=== PATIENT | female | born 1975 | race African-American/Black ===

== ENCOUNTER 2016-09-01 09:39 | Emergency (ER) | payer MEDICAID, OTHER, SELFPAY ==
[2016-09-01] MEDS ORDERED: Ondansetron HCl/PF 4 MG/2 ML Vial ONE (10:09)
[2016-09-01] MEDS ORDERED: Sodium Chloride 0.9% 1,000 ML ONE (10:09)
[2016-09-01 10:22] LABS: Blood, Urine Trace (Negative); Glucose, Urine (Dipstick) 500 mg/dL (Negative); Ketone, Urine 80 mg/dL (Negative); Nitrite Negative (Negative); Protein, Urine (Dipstick) 100 mg/dL (Neg-Trace)
[2016-09-01 10:25] LABS: Lactic Acid - Sepsis 1.2 mmol/L (0.5-2.2)
[2016-09-01 10:26] LABS: Bilirubin Negative (Negative)
[2016-09-01 10:28] LABS: ALT (SGPT) 9 U/L (0-55); AST (SGOT) 9 U/L (5-34); Alkaline Phosphatase 128 U/L (40-150); Anion Gap 17 mmol/L (10-20); BUN (Urea Nitrogen) 17 mg/dL (7.0-18.7); Bilirubin, Total 0.7 mg/dL (0.2-1.2); Calc. Creatinine Clearance 0 mL/min (70-130); Calcium 10.2 mg/dL (7.8-10.44); Carbon Dioxide 23 mmol/L (22-29); Chloride 100 mmol/L (98-107); Estimated GFR-MDRD 74; Globulin 4.4 g/dL (2.4-3.5); Lipase 24 U/L (8-78); Protein, Total 8.6 g/dL (6.0-8.3)
[2016-09-01] MEDS ORDERED: Insulin Regular 300 UNITS/3 ML VIAL ONE (10:33)
[2016-09-01 10:38] LABS: #Basophils 0.2 thou/uL (0.0-0.2); #Eosinphils 0.1 thou/uL (0.0-0.7); #Lymphocytes 3.7 thou/uL (1.20-3.40); #Monocytes 0.4 thou/uL (0.11-0.59); #Neutrophils 5.8 thou/uL (1.40-6.50); %Basophils 1.6 % (0.0-1.0); %Eosinophils 0.8 % (0.0-10.0); %Lymphocytes 36.1 % (21.0-51.0); %Monocytes 4.3 % (0.0-10.0); Hematocrit 50.7 % (36.0-47.0); Mean Platelet Volume 6.4 fL (7.4-10.4); Red Blood Cell (RBC) Count 5.76 mill/uL (4.20-5.40); White Blood Cell (WBC) Count 10.1 thou/uL (4.8-10.8)
[2016-09-01] MEDS ORDERED: Fentanyl 100 MCG/2 ML VIAL ONE (10:46)
[2016-09-01 10:49] LABS: Bacteria/HPF Rare-Few HPF (None Seen); RBC/HPF 0-3 HPF (0-3); WBC/HPF 0-3 HPF (0-3)
--- NOTE | 2016-09-01 11:37 | CT ---
CT OF THE ABDOMEN AND PELVIS WITH IV CONTRAST INDICATIONS: Abdominal pain with vomiting. No history of bowel movement in one week. The patient has reportedly not been passing flatus either over the past few days. COMPARISON: CT of the abdomen and pelvis dated 11/22/2011. FINDINGS: The lung bases are clear. No focal hepatic lesion is evident. There is mild nonspecific stranding within the retroperitoneal fat, adjacent to the pancreatic tail, which was not definitely present on the prior exam. The adrenal glands appear within normal limits . The kidneys are normal appearing. There are small calcified granuloma within the spleen. The visualized bladder is unremarkable appearing. The small and large bowel are of normal caliber. There is a mild amount of retained stool within the colon. The appendix is not definitely visualize d; however, there are no secondary signs for appendicitis. There are follicles within the right ovary. There is a small, hyperdense density seen within the le ft adnexa, which may reflect a small hemorrhagic cyst. A normal appearing uterus is not definitely seen. There is gas within the suspected vagina. The bl adder is partially decompressed. The rectum is unremarkable appearing. No pathologically enlarged lymph nodes are grossly evident. There is scattered degenerative and osteoarthritic change. IMPRESSION: 1. Some mild inflammatory infiltration of the retroperitoneal fat, adjacent to the pancreatic tail, which reflect changes of pancreatitis. Recommend correlation with clinical exam and laboratory abbi luation. 2. No additional acute abnormality evident. 3. Other findings as above. POS: REN
--- NOTE | 2016-09-01 12:13 | ERRECORD ---
[facility] EMERGENCY RECORD HPI NAUSEA/VOMITING/DIARRHEA (10:03 BPIC) CHIEF COMPLAINT: Patient presents for evaluation of nausea, Patient presents for evaluation of vomiting. HISTORIAN: History provided by patient, 1 week of n, v. no bowel movement since then. pt states that she is not having flatus either for the past few days. she is unable to keep even water down at this point because of vomiting. when she tries to take her diabetic medications, she vomits as well. Her blood glucose at home has been relatively controlled, she believes because she is not eating much. periumbilical pain and tenderness. she does have a history of pancreatitis but states that this feels different than pancreatitis. ROS (10:06 BPIC) CONSTITUTIONAL: Negative constitutional review of systems, Historian denies chills, denies fever. EYES: Negative eye review of systems. ENT: Negative ears, nose, throat review of systems. CARDIOVASCULAR: Negative cardiovascular review of systems, Historian denies chest pain, denies palpitations. RESPIRATORY: Negative respiratory review of systems, Historian denies cough, denies shortness of breath. GI: see hpi. MUSCULOSKELETAL: Negative musculoskeletal review of systems. SKIN: Negative skin review of systems. NEUROLOGIC: Negative neurologic review of systems. ENDOCRINE: Negative endocrine review of systems. HEMO/LYMPHATIC: Normal hematologic/lymphatic system review. PSYCHIATRIC: Negative psychiatric review of systems. NOTES: All other ROS is negative except as listed in HPI. PAST MEDICAL HISTORY MEDICAL HISTORY: Flu vaccine not up to date, Tetanus not up to date, Pneumococcal vaccine up to date, Date of immunization: 2016, Past medical history includes gastrointestinal disease, pancreatitis, Past medical history includes pulmonary disease, asthma, Past medical history includes history of diabetes, includes history of hyperlipidemia, high cholesterol, history of hypertension. neuropathy. (09:48 MSPE) FEMALE SURGICAL HISTORY: hernia repair, lump removal from under R and L arm. (09:48 MSPE) PSYCHIATRIC HISTORY: No previous psychiatric history. (09:48 MSPE) SOCIAL HISTORY: Patient denies alcohol use, Patient denies drug use, Patient currently uses tobacco, smokes cigarettes, Patient smokes 1 pack per day. (09:48 MSPE) NOTES: I have reviewed and agree with the PMH/PSxH/FamHx/SocHx obtained by the nurse. (10:06 BPIC) &a-1R&a+25V*p+0X*[id number]*c202B*c15G*c2P*p-0X&a-25V&a+1R Name: Esperanza Lee : 1975 F41 MedRec: [id number] AcctNum: [id number] Prepared: TueSep 01, 2016 15:12 by Interface Page 1 of 4 pMD [facility] EMERGENCY RECORD KNOWN ALLERGIES LATEX (Unconfirmed) Latex, Natural Rubber (Unconfirmed) No Known Drug Allergies CURRENT MEDICATIONS (09:45 MSPE) cloNIDine HCl: TABLET : Strength - 0.1 mg : ORAL Patient Dose: 0.1 mg Oral 2 times a day. glipiZIDE: TABLET : Strength - 10 mg : ORAL Patient Dose: 10 mg Oral 3 times a day (with meals). Lantus: CARTRIDGE (ML) : Strength - 100 unit/mL : SUBCUTANEOUS Patient Dose: 30 units Subcutaneous 2 times a day. Janumet: TABLET : Strength - 50 mg-500 mg : ORAL Patient Dose: 500 mg Oral 3 times a day (with meals). Neurontin: CAPSULE : Strength - 300 mg : ORAL Patient Dose: 300 mg Oral 3 times a day. predniSONE: TABLET : Strength - 20 mg : ORAL Patient Dose: 40 mg Oral once a day. ProAir HFA: HFA AEROSOL WITH ADAPTER (GRAM) : Strength - 90 mcg : INHALATION Patient Dose: 1-2 puff(s) INHALATION every 4 hours prn. Zithromax Z-Pa: CAPSULE : Strength - 250 mg : ORAL Patient Dose: 250 mg Oral once a day. VITAL SIGNS VITAL SIGNS: BP: 144/89, Pulse: 118, Resp: 15, Pain: 7, O2 sat: 99 on Room Air, Time: 09/01/2016 09:45. (09:45 MSPE) Temp: 97.8, Time: 09/01/2016 09:48. (09:48 MSPE) BP: 138/106, Pulse: 105, Resp: 13, O2 sat: 98 on Room Air, Time: 09/01/2016 10:16. (10:16 MSPE) BP: 147/100, Pulse: 96, Resp: 18, O2 sat: 99 on Room Air, Time: 09/01/2016 10:30. (10:30 MSPE) BP: 138/96, Pulse: 98, Resp: 15, Pain: 8, O2 sat: 96 on Room Air, Time: 09/01/2016 11:11. (11:11 MSPE) BP: 130/89, Pulse: 97, Resp: 13, O2 sat: 98 on RA, Time: 09/01/2016 11:34. (11:34 MSPE) PHYSICAL EXAM (10:06 BPIC) CONSTITUTIONAL: Vital signs reviewed, Patient appears non toxic, Patient alert and oriented to person, place and time, Pt is in no apparent distress. HEAD: Head exam included findings of head atraumatic, &a-1R&a+25V*p+0X*[id number]*c202B*c15G*c2P*p-0X&a-25V&a+1R Name: Esperanza Lee : 1975 F41 MedRec: [id number] AcctNum: [id number] Prepared: TueSep 01, 2016 15:12 by Interface Page 2 of 4 D [facility] EMERGENCY RECORD normocephalic. EYES: Eye exam included findings of eyelids normal to inspection, Pupils equally round and reactive to light, Extraocular muscles intact. ENT: ENT exam normal, Nose exam normal, no nasal deformity, no bleeding from nares, Pharynx exam normal, Mouth exam included findings of, mucous membranes dry. NECK: Neck exam included findings of normal range of motion, Trachea midline. RESPIRATORY CHEST: Respiratory and chest exam normal, Breath sounds clear, No wheezing, No rales, Chest exam included findings of chest movement symmetrical, Chest expansion equal. CARDIOVASCULAR: Cardiovascular assessment normal, Cardiovascular exam included findings of, rate tachycardic, rhythm regular, Heart sounds normal. ABDOMEN FEMALE: Abdominal exam included findings of abdomen tender, periumbilical, moderate intensity, Bowel sounds normal, no mass, no pulsatile masses, no peritoneal signs. BACK: Back exam included findings of normal inspection, range of motion normal, no costovertebral angle tenderness. UPPER EXTREMITY: Upper extremity exam included findings of inspection normal, Range of motion normal. LOWER EXTREMITY: Lower extremity exam included findings of inspection normal, Range of motion normal. NEURO: Neuro exam findings include patient oriented to person, place and time, Speech normal, no focal motor deficits, no focal sensory deficits. SKIN: Skin exam included findings of skin warm, dry, and normal in color. LYMPHATIC: Lymphatic exam normal. PSYCHIATRIC: Psychiatric exam included findings of patient oriented to person place and time, Normal affect. MEDICATION ADMINISTRATION SUMMARY Drug Name: fentaNYL (PF) injection, Dose Ordered: 50 mcg, Route: IV Push, Status: Given, Time: 10:49 09/01/2016, Drug Name: NovoLIN R, Dose Ordered: 6 units, Route: IV Push, Status: Given, Time: 10:37 09/01/2016, Drug Name: ondansetron HCl intravenous, Dose Ordered: 8 mg, Route: IV Push, Status: Given, Time: 10:18 09/01/2016, Drug Name: sodium chloride 0.9 % intravenous, Dose Ordered: 1000 mL, Route: IV Fluid Infusion, Status: Given, Time: 10:15 09/01/2016, Detailed record available in Medication Service section. DOCTOR NOTES (11:38 BPIC) TEXT: Constipation and vomiting. no obstruction seen on ct and stool throughout colon. mild hyperglycemia and serum ketone without anion gap, hyperglycemia improved with ivf and insulin. I &a-1R&a+25V*p+0X*[id number]*c202B*c15G*c2P*p-0X&a-25V&a+1R Name: Esperanza Lee : 1975 F41 MedRec: [id number] AcctNum: [id number] Prepared: TueSep 01, 2016 15:12 by Interface Page 3 of 4 pMD [facility] EMERGENCY RECORD have discussed this with the patient along with the option of admission or trial of outpatient laxative and nausea medication. Pt feeling better and she would like to take a laxative at home I discussed the diagnosis with the patient prior to discharge. All questions were answered. There is no indication for admission currently and the patient will follow up with his primary care physician. Any pertinent labs or imaging was reviewed and dicussed with the patient. If any new or emergent symptoms occur, the patient will return to the emergency department. PROBLEM LIST No recorded problems DIAGNOSIS DIFFERENTIAL: Based on history, exam and ancillary studies if indicated: Impression: appendicitis, Impression: bowel obstruction, Impression: constipation, Impression: hernia, Impression: ischemic bowel, Impression: pancreatitis, Impression: gastritis, Impression: GERD, Impression: cholelithiasis. (10:07 BPIC) FINAL: PRIMARY: constipation, ADDITIONAL: hyperglycemia, vomiting. (11:40 BPIC) PRESCRIPTION (11:41 BPIC) traMADol: TABLET : 50 mg : ORAL : Quantity: 50 Unit: mg Route: ORAL Schedule: every 6 hours PRN Dispense: 20 Unit: tab(s) May substitute. Refills: No Refills . NOTES: No Refills. Zofran ODT: TABLET,DISINTEGRATING : 8 mg : ORAL : Quantity: 8 Unit: mg Route: ORAL Schedule: every 6 hours PRN Dispense: 20 Unit: tab(s) May substitute. Refills: No Refills . NOTES: ^s=No Refills No Refills. DISPOSITION PATIENT: Disposition Type: Discharge, Disposition: *Discharge Home, Condition: Good. (11:40 BPIC) Patient left the department. (12:06 MSPE) Mcrae: BPIC=MD Siva, Duong MSPE=ASHELY Bell, Queenie &a-1R&a+25V*p+0X*g0569S*c202B*c15G*c2P*p-0X&a-25V&a+1R Name: Esperanza Lee : 1975 F41 MedRec: [id number] AcctNum: [id number] Prepared: TueSep 01, 2016 15:12 by Interface Page 4 of 4 pMD MTDD
--- NOTE | 2016-09-01 12:18 | PICIS ---
[facility] EMERGENCY RECORD TRIAGE (09:44 MSPE) TRIAGE NOTES: stomach pain with vomiting since Tuesday. (09:44 MSPE) PATIENT: NAME: Esperanza Lee, AGE: 41, GENDER: female, : Sandra 1975, TIME OF GREET: TueSep 01, 2016 09:40, PREFERRED LANGUAGE: Mauritanian, ETHNICITY: Not or , ECODE BILLING MAP: [facility], SSN: [id number], Zip Code: [address], KG WEIGHT: 64.86, PHONE: , , , PERSON ID: [id number], PCP: Chanda Leon /Won. (09:44 MSPE) COMPLAINT: ABDOMINAL PAIN,VOMITING,WEAKNESS. (09:44 MSPE) ADMISSION: URGENCY: 3 Urgent, ADMISSION SOURCE: Home, TRANSPORT: CAR, BED: ER -03. (09:44 MSPE) LMP: Last menstrual period: 08/26/2016. (09:48 MSPE) PROVIDERS: TRIAGE NURSE: Queenie Bell RN. (09:44 MSPE) VITAL SIGNS: BP 144/89, Pulse 118, Resp 15, Pain 7, O2 Sat 99, on Room Air, Time 09/01/2016 09:45. (09:45 MSPE) PREVIOUS VISIT ALLERGIES: LATEX. (09:44 MSPE) LATEX. (09:48 MSPE) KNOWN ALLERGIES LATEX (Unconfirmed) Latex, Natural Rubber (Unconfirmed) No Known Drug Allergies CURRENT MEDICATIONS (09:45 MSPE) cloNIDine HCl: TABLET : Strength - 0.1 mg : ORAL Patient Dose: 0.1 mg Oral 2 times a day. glipiZIDE: TABLET : Strength - 10 mg : ORAL Patient Dose: 10 mg Oral 3 times a day (with meals). Lantus: CARTRIDGE (ML) : Strength - 100 unit/mL : SUBCUTANEOUS Patient Dose: 30 units Subcutaneous 2 times a day. Janumet: TABLET : Strength - 50 mg-500 mg : ORAL Patient Dose: 500 mg Oral 3 times a day (with meals). Neurontin: CAPSULE : Strength - 300 mg : ORAL Patient Dose: 300 mg Oral 3 times a day. predniSONE: TABLET : Strength - 20 mg : ORAL Patient Dose: 40 mg Oral once a day. ProAir HFA: HFA AEROSOL WITH ADAPTER (GRAM) : Strength - 90 mcg : INHALATION Patient Dose: 1-2 puff(s) INHALATION every 4 hours prn. Zithromax Z-Pa: CAPSULE : Strength - 250 mg : ORAL Patient Dose: 250 mg Oral once a day. &a-1R&a+25V*p+0X*i6248G*c202B*c15G*c2P*p-0X&a-25V&a+1R Name: Esperanza Lee : 1975 F41 MedRec: [id number] AcctNum: [id number] Prepared: TueSep 01, 2016 15:19 by Interface Page 1 of 12 pMD [facility] EMERGENCY RECORD VITAL SIGNS VITAL SIGNS: BP: 144/89, Pulse: 118, Resp: 15, Pain: 7, O2 sat: 99 on Room Air, Time: 09/01/2016 09:45. (09:45 MSPE) Temp: 97.8, Time: 09/01/2016 09:48. (09:48 MSPE) BP: 138/106, Pulse: 105, Resp: 13, O2 sat: 98 on Room Air, Time: 09/01/2016 10:16. (10:16 MSPE) BP: 147/100, Pulse: 96, Resp: 18, O2 sat: 99 on Room Air, Time: 09/01/2016 10:30. (10:30 MSPE) BP: 138/96, Pulse: 98, Resp: 15, Pain: 8, O2 sat: 96 on Room Air, Time: 09/01/2016 11:11. (11:11 MSPE) BP: 130/89, Pulse: 97, Resp: 13, O2 sat: 98 on RA, Time: 09/01/2016 11:34. (11:34 MSPE) NURSING ASSESSMENT: ABDOMEN (09:48 MSPE) CONSTITUTIONAL: Patient arrives ambulatory, Gait steady, History obtained from patient, Patient appears, generally ill, Patient cooperative, Patient alert, Oriented to person, place and time, Skin warm, Skin dry. PAIN: cramping pain, to the epigastric region, Onset of pain 08/25/2016, constant, sts pain worse after vomiting. ABDOMEN: Associated with nausea, Associated with vomiting, no associated diarrhea, Associated with appetite change, sts no PO tolerance, Notes: sts belching a lot; no BM for several days Subjective fever. GENITOURINARY FEMALE: no associated urinary complaints. SAFETY: Side rails up, Cart/Stretcher in lowest position, Family at bedside, Call light within reach, Hospital ID band on. VITAL SIGNS: Temp: 97.8. NURSING PROCEDURE: BEDSIDE TESTING GLUCOSE: Glucose testing indicated for diabetic patient, Capillary blood sample, Result (mg/dl) 263. (10:06 MSPE) Glucose testing indicated for diabetic patient, Glucose testing indicated for hyperglycemia, Capillary blood sample, Result (mg/dl) 187. (11:34 MSPE) FOLLOW-UP: After procedure, results given to Dr. Paniagua. (10:06 MSPE) After procedure, results given to Dr. Paniagua. (11:34 MSPE) VITAL SIGNS: BP: 130, / 89, Pulse: 97, Resp: 13, O2 sat: 98, on: RA. (11:34 MSPE) NURSING PROCEDURE: DISCHARGE NOTE (11:52 MSPE) DISCHARGE: Patient discharged to home, in a wheelchair, family driving, accompanied by //partner, Summary of Care printed/ provided, Discharge instructions given to patient, Simple or moderate discharge teaching performed, Prescriptions given and instructions on side effects given, Above person(s) verbalized &a-1R&a+25V*p+0X*s7631E*c202B*c15G*c2P*p-0X&a-25V&a+1R Name: Esperanza Lee : 1975 F41 MedRec: [id number] AcctNum: [id number] Prepared: TueSep 01, 2016 15:19 by Interface Page 2 of 12 D [facility] EMERGENCY RECORD understanding of discharge instructions and follow-up care, Patient treated and evaluated by physician. BELONGINGS: Belongings remain with patient. NOTES: Notes: Tolerating sips of water at time of DC. NURSING PROCEDURE: IV PATIENT IDENITIFIER: Patient actively involved in identification process, Patient's identity verified by patient stating name, Patient's identity verified by patient stating date, Patient's identity verified by hospital ID bracelet. (10:00 MCBE) IV SITE 1: IV therapy indicated for hydration, IV therapy indicated for medication administration, IV established, to the left antecubital, using a 20 gauge catheter, in one attempt, IV site prepped with CHLORAPREP, Saline lock established, Flushed with normal saline (mls): 10, Labs drawn at time of placement, labeled in the presence of the patient and sent to lab. (10:00 MCBE) FOLLOW-UP SITE 1: After procedure, 2x2 dressing applied, IV discontinued, catheter intact. (11:45 MSPE) NURSING PROCEDURE: NURSE NOTES NURSES NOTES: Patient resting quietly, Warm blanket given to patient, Patient is awaiting results, Patient is awaiting disposition. (10:20 MSPE) Notes: Back from CT; sts pain better (but rates 8/10). CT results pending. (11:11 MSPE) Notes: Dr Paniagua at bedside to discuss results with pt. (11:34 MSPE) NURSING PROCEDURE: TRANSPORT TO TESTS TRANSPORT TO TESTS: Patient transported to CT scan, via cart, Accompanied by x-ray fuel verification technician. (10:57 MSPE) FOLLOW-UP: After procedure, patient returned to emergency department. (11:09 MSPE) NURSING PROCEDURE: URINE COLLECTION PATIENT IDENTIFIER: Patient actively involved in identification process, Patient's identity verified by patient stating name, Patient's identity verified by patient stating date, Patient's identity verified by hospital ID bracelet. (10:15 MCBE) URINE COLLECTION FEMALE: Urine collected by mid-stream clean catch, Output amount (mL) 60, urine orange in color, Specimen labeled in the presence of the patient and sent to lab, Specimen obtained for culture labeled in the presence of the patient and sent to lab. (10:15 MCBE) Urine collection indicated for abd pain, Urine collected by mid-stream clean catch. (10:10 MSPE) ORDER DETAILS Order Name: Beta-Hydroxybutyrate (Ketone), Status: Active, Time: &a-1R&a+25V*p+0X*g3389B*c202B*c15G*c2P*p-0X&a-25V&a+1R Name: Esperanza Lee : 1975 F41 MedRec: [id number] AcctNum: [id number] Prepared: TueSep 01, 2016 15:19 by Interface Page 3 of 12 pMD [facility] EMERGENCY RECORD 09:56 09/01/2016, User: CHON, - Ordered for: MD Paniagua Bryan, - Entered by: MD Paniagua Bryan - TueSep 01, 2016 09:56, - Quantity: 1, Order Name: BLOOD GLUCOSE MONITOR, Status: Done, Time: 10:06 09/01/2016, User: SUSANA, - Ordered for: MD Paniagua Bryan, - Entered by: MD Paniagua Bryan - TueSep 01, 2016 09:56, - Quantity: 1, Order Name: BLOOD GLUCOSE MONITOR, Status: Done, Time: 11:33 09/01/2016, User: SUSANA, - Ordered for: MD Paniagua Bryan, - Entered by: ASHELY Bell Marilyn - TueSep 01, 2016 11:33, - Quantity: 1, Order Name: CBC with Differential, Status: Active, Time: 09:56 09/01/2016, User: BPIC, - Ordered for: MD Paniagua Bryan, - Entered by: MD Paniagua Bryan - TueSep 01, 2016 09:56, - Quantity: 1, Order Name: CK (CPK), Status: Active, Time: 10:08 09/01/2016, User: BPIC, - Ordered for: MD Paniagua Bryan, - Entered by: MD Paniagua Bryan - TueSep 01, 2016 10:08, - Quantity: 1, Order Name: Comprehensive Metabolic Panel, Status: Active, Time: 09:56 09/01/2016, User: BPRENATA, - Ordered for: MD Paniagua Bryan, - Entered by: MD Paniagua Bryan - TueSep 01, 2016 09:56, - Quantity: 1, Order Name: CT Abdomen Pelvis W Con, Status: Active, Time: 10:02 09/01/2016, User: BPRENATA, - Ordered for: MD Paniagua Bryan, - Entered by: MD Paniagua Bryan - TueSep 01, 2016 10:02, - Quantity: 1, Order Name: Lactic Acid with repeat, Status: Active, Time: 10:02 09/01/2016, User: CHON, - Ordered for: MD Paniagua Bryan, - Entered by: MD Paniagua Bryan - TueSep 01, 2016 10:02, - Quantity: 1, Order Name: Lipase, Status: Active, Time: 10:01 09/01/2016, User: BPIC, - Ordered for: MD Paniagua Bryan, - Entered by: MD Paniagua Bryan - TueSep 01, 2016 10:01, - Quantity: 1, Order Name: Test, Serum (BHCG), Status: Active, Time: 10:08 09/01/2016, User: BPIC, - Ordered for: MD Paniagua Bryan, - Entered by: MD Paniagua Bryan - TueSep 01, 2016 10:08, - Quantity: 1, Order Name: SALINE LOCK, Status: Done, Time: 09:59 09/01/2016, User: &a-1R&a+25V*p+0X*m7356W*c202B*c15G*c2P*p-0X&a-25V&a+1R Name: Esperanza Lee : 1975 F41 MedRec: [id number] AcctNum: [id number] Prepared: TueSep 01, 2016 15:19 by Interface Page 4 of 12 pMD [facility] EMERGENCY RECORD MCBE, - Ordered for: MD Paniagua Bryan, - Entered by: MD Paniagua Bryan - TueSep 01, 2016 09:56, - Quantity: 1, Order Name: Urinalysis w/ Rflx Microscopic, Status: Active, Time: 10:01 09/01/2016, User: CHON, - Ordered for: MD Paniagua Bryan, - Entered by: MD Paniagua Bryan - TueSep 01, 2016 10:01, - Quantity: 1. MEDICATION ADMINISTRATION SUMMARY Drug Name: fentaNYL (PF) injection, Dose Ordered: 50 mcg, Route: IV Push, Status: Given, Time: 10:49 09/01/2016, Drug Name: NovoLIN R, Dose Ordered: 6 units, Route: IV Push, Status: Given, Time: 10:37 09/01/2016, Drug Name: ondansetron HCl intravenous, Dose Ordered: 8 mg, Route: IV Push, Status: Given, Time: 10:18 09/01/2016, Drug Name: sodium chloride 0.9 % intravenous, Dose Ordered: 1000 mL, Route: IV Fluid Infusion, Status: Given, Time: 10:15 09/01/2016, Detailed record available in Medication Service section. MEDICATION SERVICE fentaNYL (PF) injection: Order: fentaNYL (PF) injection (fentanyl citrate/preservative free) - Dose: 50 mcg : IV Push Ordered by: Duong Paniagua MD Entered by: Duong Paniagua MD TueSep 01, 2016 10:46 Documented as given by: Queenie Bell RN TueSep 01, 2016 10:49 Patient, Medication, Dose, Route and Time verified prior to administration. Amount given: 50mcg, IV SITE #1 IVP, subsequent different medication, Slowly, Awake and alert- acceptable, Connections checked prior to administration, Line traced prior to administration, Catheter placement confirmed via flush prior to administration, IV site without signs or symptoms of infiltration during medication administration, No swelling during administration, No drainage during administration, IV flushed after administration, Correct patient, time, route, dose and medication confirmed prior to administration, Patient advised of actions and side-effects prior to administration, Allergies confirmed and medications reviewed prior to administration, Patient in position of comfort, Side rails up, Cart in lowest position, Family at bedside. NovoLIN R: Order: NovoLIN R (insulin regular, human) - Dose: 6 units : IV Push Ordered by: Duong Paniagua MD Entered by: Duong Paniagua MD TueSep 01, 2016 10:32 , Co-signed by: Le Cruz TueSep 01, 2016 10:36, Acknowledged by: Queenie Bell RN TueSep 01, 2016 10:36 Documented as given by: Queenie Bell RN TueSep 01, 2016 10:37 &a-1R&a+25V*p+0X*e6974G*c202B*c15G*c2P*p-0X&a-25V&a+1R Name: Esperanza Lee : 1975 F41 MedRec: [id number] AcctNum: [id number] Prepared: TueSep 01, 2016 15:19 by Interface Page 5 of 12 pMD [facility] EMERGENCY RECORD Patient, Medication, Dose, Route and Time verified prior to administration. Amount given: 6 units, IV SITE #1 IVP, subsequent different medication, Awake and alert- acceptable, Connections checked prior to administration, Line traced prior to administration, Catheter placement confirmed via flush prior to administration, IV site without signs or symptoms of infiltration during medication administration, No swelling during administration, No drainage during administration, IV flushed after administration, Correct patient, time, route, dose and medication confirmed prior to administration, Patient advised of actions and side-effects prior to administration, Allergies confirmed and medications reviewed prior to administration, Patient in position of comfort, Side rails up, Cart in lowest position, Family at bedside. ondansetron HCl intravenous: Order: ondansetron HCl intravenous (ondansetron HCl) - Dose: 8 mg : IV Push Ordered by: Duong Paniagua MD Entered by: Duong Paniagua MD TueSep 01, 2016 10:02 , Acknowledged by: Queenie Bell RN TueSep 01, 2016 10:08 Documented as given by: Queenie Bell RN TueSep 01, 2016 10:18 Patient, Medication, Dose, Route and Time verified prior to administration. Amount given: 8mg, IV SITE #1 IVP, initial medication, Slowly, Awake and alert- acceptable, Connections checked prior to administration, Line traced prior to administration, Catheter placement confirmed via flush prior to administration, IV site without signs or symptoms of infiltration during medication administration, No swelling during administration, No drainage during administration, IV flushed after administration, Correct patient, time, route, dose and medication confirmed prior to administration, Patient advised of actions and side-effects prior to administration, Allergies confirmed and medications reviewed prior to administration, Patient in position of comfort, Side rails up, Cart in lowest position, Call light in reach. sodium chloride 0.9 % intravenous: Order: sodium chloride 0.9 % intravenous (0.9 % sodium chloride) - Dose: 1000 mL : IV Fluid Infusion Ordered by: Duong Paniagua MD Entered by: Duong Paniagua MD TueSep 01, 2016 10:02 , Acknowledged by: Queenie Bell RN TueSep 01, 2016 10:08 Documented as given by: Queenie Bell RN TueSep 01, 2016 10:15 Patient, Medication, Dose, Route and Time verified prior to administration. Amount given: 1000ml, IV SITE #1 IV fluids established for hydration, IV SITE #1 1st bag hung, amount 1 Liter hung, IV SITE #1 bolus of 1000 ml established, IV SITE #1 Rate of bolus, wide open, via primary tubing, via gravity tubing, Awake and alert- acceptable, Connections checked prior to administration, Line traced prior to administration, Catheter placement confirmed via flush prior to administration, IV site without signs or symptoms of infiltration during medication administration, No swelling during administration, &a-1R&a+25V*p+0X*x8598W*c202B*c15G*c2P*p-0X&a-25V&a+1R Name: Esperanza Lee : 1975 F41 MedRec: [id number] AcctNum: [id number] Prepared: TueSep 01, 2016 15:19 by Interface Page 6 of 12 pMD [facility] EMERGENCY RECORD No drainage during administration, IV flushed after administration, Correct patient, time, route, dose and medication confirmed prior to administration, Patient advised of actions and side-effects prior to administration, Allergies confirmed and medications reviewed prior to administration, Patient in position of comfort, Side rails up, Cart in lowest position. : Follow Up : _IV SITE #1:_, IV fluid infusion discontinued, on TueSep 01, 2016 11:14, Total fluid hydration time IV site 1 1 hour, ., Total amount infused: 1000ml, IV Line flushed after administration. (11:14 MSPE) HPI NAUSEA/VOMITING/DIARRHEA (10:03 BPIC) CHIEF COMPLAINT: Patient presents for evaluation of nausea, Patient presents for evaluation of vomiting. HISTORIAN: History provided by patient, 1 week of n, v. no bowel movement since then. pt states that she is not having flatus either for the past few days. she is unable to keep even water down at this point because of vomiting. when she tries to take her diabetic medications, she vomits as well. Her blood glucose at home has been relatively controlled, she believes because she is not eating much. periumbilical pain and tenderness. she does have a history of pancreatitis but states that this feels different than pancreatitis. ROS (10:06 BPIC) CONSTITUTIONAL: Negative constitutional review of systems, Historian denies chills, denies fever. EYES: Negative eye review of systems. ENT: Negative ears, nose, throat review of systems. CARDIOVASCULAR: Negative cardiovascular review of systems, Historian denies chest pain, denies palpitations. RESPIRATORY: Negative respiratory review of systems, Historian denies cough, denies shortness of breath. GI: see hpi. MUSCULOSKELETAL: Negative musculoskeletal review of systems. SKIN: Negative skin review of systems. NEUROLOGIC: Negative neurologic review of systems. ENDOCRINE: Negative endocrine review of systems. HEMO/LYMPHATIC: Normal hematologic/lymphatic system review. PSYCHIATRIC: Negative psychiatric review of systems. NOTES: All other ROS is negative except as listed in HPI. PAST MEDICAL HISTORY MEDICAL HISTORY: Flu vaccine not up to date, Tetanus not up to date, Pneumococcal vaccine up to date, Date of immunization: 2016, Past medical history includes gastrointestinal disease, pancreatitis, Past medical history includes pulmonary disease, asthma, Past medical history includes history of diabetes, includes history of &a-1R&a+25V*p+0X*s9728U*c202B*c15G*c2P*p-0X&a-25V&a+1R Name: Esperanza Lee : 1975 F41 MedRec: [id number] AcctNum: [id number] Prepared: TueSep 01, 2016 15:19 by Interface Page 7 of 12 pMD [facility] EMERGENCY RECORD hyperlipidemia, high cholesterol, history of hypertension. neuropathy. (09:48 MSPE) FEMALE SURGICAL HISTORY: hernia repair, lump removal from under R and L arm. (09:48 MSPE) PSYCHIATRIC HISTORY: No previous psychiatric history. (09:48 MSPE) SOCIAL HISTORY: Patient denies alcohol use, Patient denies drug use, Patient currently uses tobacco, smokes cigarettes, Patient smokes 1 pack per day. (09:48 MSPE) NOTES: I have reviewed and agree with the PMH/PSxH/FamHx/SocHx obtained by the nurse. (10:06 BPIC) PHYSICAL EXAM (10:06 BPIC) CONSTITUTIONAL: Vital signs reviewed, Patient appears non toxic, Patient alert and oriented to person, place and time, Pt is in no apparent distress. HEAD: Head exam included findings of head atraumatic, normocephalic. EYES: Eye exam included findings of eyelids normal to inspection, Pupils equally round and reactive to light, Extraocular muscles intact. ENT: ENT exam normal, Nose exam normal, no nasal deformity, no bleeding from nares, Pharynx exam normal, Mouth exam included findings of, mucous membranes dry. NECK: Neck exam included findings of normal range of motion, Trachea midline. RESPIRATORY CHEST: Respiratory and chest exam normal, Breath sounds clear, No wheezing, No rales, Chest exam included findings of chest movement symmetrical, Chest expansion equal. CARDIOVASCULAR: Cardiovascular assessment normal, Cardiovascular exam included findings of, rate tachycardic, rhythm regular, Heart sounds normal. ABDOMEN FEMALE: Abdominal exam included findings of abdomen tender, periumbilical, moderate intensity, Bowel sounds normal, no mass, no pulsatile masses, no peritoneal signs. BACK: Back exam included findings of normal inspection, range of motion normal, no costovertebral angle tenderness. UPPER EXTREMITY: Upper extremity exam included findings of inspection normal, Range of motion normal. LOWER EXTREMITY: Lower extremity exam included findings of inspection normal, Range of motion normal. NEURO: Neuro exam findings include patient oriented to person, place and time, Speech normal, no focal motor deficits, no focal sensory deficits. SKIN: Skin exam included findings of skin warm, dry, and normal in color. LYMPHATIC: Lymphatic exam normal. PSYCHIATRIC: Psychiatric exam included findings of patient oriented to person place and time, Normal affect. &a-1R&a+25V*p+0X*p7274R*c202B*c15G*c2P*p-0X&a-25V&a+1R Name: Esperanza Lee : 1975 F41 MedRec: [id number] AcctNum: [id number] Prepared: TueSep 01, 2016 15:19 by Interface Page 8 of 12 pMD [facility] EMERGENCY RECORD EVENTS TRANSFER: Triage to Emergency Emergency Room -03. (TueSep 01, 2016 09:44 MSPE) Removed from Emergency Emergency Room -03. (12:06 MSPE) DOCTOR NOTES (11:38 BPIC) TEXT: Constipation and vomiting. no obstruction seen on ct and stool throughout colon. mild hyperglycemia and serum ketone without anion gap, hyperglycemia improved with ivf and insulin. I have discussed this with the patient along with the option of admission or trial of outpatient laxative and nausea medication. Pt feeling better and she would like to take a laxative at home I discussed the diagnosis with the patient prior to discharge. All questions were answered. There is no indication for admission currently and the patient will follow up with his primary care physician. Any pertinent labs or imaging was reviewed and dicussed with the patient. If any new or emergent symptoms occur, the patient will return to the emergency department. PROBLEM LIST No recorded problems DIAGNOSIS DIFFERENTIAL: Based on history, exam and ancillary studies if indicated: Impression: appendicitis, Impression: bowel obstruction, Impression: constipation, Impression: hernia, Impression: ischemic bowel, Impression: pancreatitis, Impression: gastritis, Impression: GERD, Impression: cholelithiasis. (10:07 BPIC) FINAL: PRIMARY: constipation, ADDITIONAL: hyperglycemia, vomiting. (11:40 BPIC) DISPOSITION PATIENT: Disposition Type: Discharge, Disposition: *Discharge Home, Condition: Good. (11:40 BPIC) Patient left the department. (12:06 MSPE) INSTRUCTION (11:41 BPIC) DISCHARGE: DIARRHEA VOMIT VIRAL 6YADULT, CONSTIPATION (ADULT). FOLLOWUP: [facility], [facility], [address] [place] [id number], . SPECIAL: Thank you for choosing [facility] for your care today! Please follow up with your primary doctor in the next 2-3 days. Return to the emergency department with any other worsening or emergent symptoms. God bless you!. PRESCRIPTION (11:41 BPIC) &a-1R&a+25V*p+0X*r7394X*c202B*c15G*c2P*p-0X&a-25V&a+1R Name: Jesus Esperanza Denys : 1975 F41 MedRec: [id number] AcctNum: [id number] Prepared: TueSep 01, 2016 15:19 by Interface Page 9 of 12 pMD [facility] EMERGENCY RECORD traMADol: TABLET : 50 mg : ORAL : Quantity: 50 Unit: mg Route: ORAL Schedule: every 6 hours PRN Dispense: 20 Unit: tab(s) May substitute. Refills: No Refills . NOTES: No Refills. Zofran ODT: TABLET,DISINTEGRATING : 8 mg : ORAL : Quantity: 8 Unit: mg Route: ORAL Schedule: every 6 hours PRN Dispense: 20 Unit: tab(s) May substitute. Refills: No Refills . NOTES: ^s=No Refills No Refills. IMAGING (12:05 MSPE) *DISCHARGE INSTRUCTIONS RECEIPT: Image captured from scanner. Page 2 added. Image captured from scanner. SUP: Image captured from scanner. ADMIN (15:03 [facility]) DIGITAL SIGNATURE: MD Siva, Duong. RESULTS LABORATORY: Test, Serum (BHCG) Collection DT: TueSep 01, 2016 10:17, BHCG - Serum NEGATIVE , Range (NEGATIVE), Method of sensitivity- Indeterminant: results should be repeated, after 48 hours. Positive: results may be detected as early as 4-5 days before a first missed menses. Elimination of BHCG-, Elimination following first trimester D&C: 29-44 Days , Elimination following term : 8-24 Days . (10:26 MCBE) Accuchek Collection DT: TueSep 01, 2016 10:14, *Accuchek 263 - H mg/dL, Range (70-110). (10:26 MCBE) Urinalysis w/ Rflx Microscopic Collection DT: TueSep 01, 2016 10:17, Color Yellow , Range (Yellow), Clarity Clear , Range (Clear), Specific [place], Urine 1.035 , Range (1.002-1.036), pH, Urine 5.5 , Range (5.0-9.0), Leukocyte Negative , Range (Negative), Nitrite Negative , Range (Negative), *Protein, Urine (Dipstick) 100 - H mg/dL, Range (Neg-Trace), *Glucose, Urine (Dipstick) 500 - H mg/dL, Range (Negative), *Ketone, Urine 80 - H mg/dL, Range (Negative), Urobilinogen 1.0 mg/dL, Range (0.2-1.0), Bilirubin Negative , Range (Negative), , *Blood, Urine Trace - H , Range (Negative). (10:31 [facility]BE) &a-1R&a+25V*p+0X*[id number]*c202B*c15G*c2P*p-0X&a-25V&a+1R Name: Esperanza Lee : 1975 F41 MedRec: [id number] AcctNum: [id number] Prepared: TueSep 01, 2016 15:19 by Interface Page 10 of 12 pMD [facility] EMERGENCY RECORD Lactic Acid for Sepsis Collection DT: TueSep 01, 2016 10:06, Lactic Acid - Sepsis 1.2 mmol/L, Range (0.5-2.2). (10:31 MCBE) Lipase Collection DT: TueSep 01, 2016 10:06, Lipase 24 U/L, Range (8-78). (10:32 BPIC) Comprehensive Metabolic Panel Collection DT: TueSep 01, 2016 10:06, Sodium 136 mmol/L, Range (136-145), Potassium 4.0 mmol/L, Range (3.5-5.1), Chloride 100 mmol/L, Range (98-107), Carbon Dioxide 23 mmol/L, Range (22-29), Anion Gap 17 mmol/L, Range (10-20), BUN (Urea Nitrogen) 17 mg/dL, Range (7.0-18.7), Creatinine 1.00 mg/dL, Range (0.6-1.1), Estimated GFR-MDRD 74 , Reference Range for Estimated GFR: Greater than 90, mL/min/1.73 m2 NOTE: The MDRD equation has not been validated for use, with the elderly (over 70 years of age), women, patients with, serious comorbid condition or persons with extremes of body size, muscle, mass, or nutritional status. , *Glucose 300 - H mg/dL, Range (70-105), Calcium 10.2 mg/dL, Range (7.8-10.44), Bilirubin, Total 0.7 mg/dL, Range (0.2-1.2), *Protein, Total 8.6 - H g/dL, Range (6.0-8.3), NOTE: Plasma values are generally 0.3 to 0.5 g/dL higher than serum values, due to the presence of fibrinogen. , Albumin 4.2 g/dL, Range (3.5-5.0), *Globulin 4.4 - H g/dL, Range (2.4-3.5), *Alb/Glob Ratio 1.0 - L g/dL, Range (1.2-2.2), Alkaline Phosphatase 128 U/L, Range (40-150), AST (SGOT) 9 U/L, Range (5-34), ALT (SGPT) 9 U/L, Range (0-55). (10:32 BPIC) Beta-Hydroxybutyrate (Ketone) Collection DT: TueSep 01, 2016 10:06, *Beta-Hydroxybutyrate (Ketone) 0.71 - H mmol/L, Range (0.02-0.27). (10:32 BPIC) CBC with Differential Collection DT: TueSep 01, 2016 10:06, White Blood Cell (WBC) Count 10.1 thou/uL, Range (4.8-10.8), *Red Blood Cell (RBC) Count 5.76 - H mill/uL, Range (4.20-5.40), *Hemoglobin 16.4 - H g/dL, Range (12.0-16.0), *Hematocrit 50.7 - H %, Range (36.0-47.0), Mean Corpuscular Volume 87.9 fl, Range (81.0-99.0), Mean Corpuscular Hemoglobin 28.5 pg, Range (27.0-31.0), Mean Corpuscular HGB CONC 32.4 g/dL, Range (32.0-36.0), RBC Distribution Width 12.5 %, Range (11.5-14.5), Platelet Count 361 thou/uL, Range (130-400), *Mean Platelet Volume 6.4 - L fL, Range (7.4-10.4), %Neutrophils 57.2 %, Range (42.0-75.0), %Lymphocytes 36.1 %, Range (21.0-51.0), &a-1R&a+25V*p+0X*i2798A*c202B*c15G*c2P*p-0X&a-25V&a+1R Name: Esperanza Lee : 1975 F41 MedRec: [id number] AcctNum: [id number] Prepared: TueSep 01, 2016 15:19 by Interface Page 11 of 12 pMD [facility] EMERGENCY RECORD %Monocytes 4.3 %, Range (0.0-10.0), %Eosinophils 0.8 %, Range (0.0-10.0), *%Basophils 1.6 - H %, Range (0.0-1.0), #Neutrophils 5.8 thou/uL, Range (1.40-6.50), *#Lymphocytes 3.7 - H thou/uL, Range (1.20-3.40), #Monocytes 0.4 thou/uL, Range (0.11-0.59), #Eosinphils 0.1 thou/uL, Range (0.0-0.7), #Basophils 0.2 thou/uL, Range (0.0-0.2). (10:41 MCBE) CK (CPK) Collection DT: TueSep 01, 2016 10:17, CK (CPK) 41 U/L, Range (29-168). (10:42 BPIC) Urine Microscopic Collection DT: TueSep 01, 2016 10:17, RBC/HPF 0-3 HPF, Range (0-3), WBC/HPF 0-3 HPF, Range (0-3), *Squamous Epithelial 4-6 - H HPF, Range (0-3), Bacteria/HPF Rare-Few HPF, Range (None Seen). (11:12 MCBE) Urinalysis w/ Rflx Microscopic Collection DT: TueSep 01, 2016 10:17, Color Yellow , Range (Yellow), Clarity Clear , Range (Clear), Specific [place], Urine 1.035 , Range (1.002-1.036), pH, Urine 5.5 , Range (5.0-9.0), Leukocyte Negative , Range (Negative), Nitrite Negative , Range (Negative), *Protein, Urine (Dipstick) 100 - H mg/dL, Range (Neg-Trace), *Glucose, Urine (Dipstick) 500 - H mg/dL, Range (Negative), *Ketone, Urine 80 - H mg/dL, Range (Negative), Urobilinogen 1.0 mg/dL, Range (0.2-1.0), Bilirubin Negative , Range (Negative), , *Blood, Urine Trace - H , Range (Negative). (11:12 CARMELITA) Mcrae: BPIC=MD [place] MCBE=[place] MSPE=ASHELY Bell, Queenie &a-1R&a+25V*p+0X*[id number]*c202B*c15G*c2P*p-0X&a-25V&a+1R Name: Esperanza Lee : 1975 F41 MedRec: [id number] AcctNum: [id number] Prepared: TueSep 01, 2016 15:19 by Interface Page 12 of 12 pMD MTDD
== END 2016-09-01 11:52 | disposition home or self-care (01) ==
LOC: NAV ERS 09:39
DX: E11.65 Type 2 diabetes mellitus with hyperglycemia (principal); K59.00 Constipation, unspecified; K85.90 Acute pancreatitis without necrosis or infection, unspecified; I10 Essential (primary) hypertension; F17.210 Nicotine dependence, cigarettes, uncomplicated; J45.909 Unspecified asthma, uncomplicated
CPT/HCPCS: 36416; 74177; 80053; 81003; 81015; 82010; 82550; 83605; 83690; 84703; 85025; 96361; 96374; 96375; J1815; J2405; J3010; J7050

== ENCOUNTER 2017-05-30 20:27 | Emergency (ER) | payer MEDICAID, SELFPAY ==
[2017-05-30] MEDS ORDERED: Ketorolac Tromethamine 60 MG/2 ML VIAL ONE (21:29)
--- NOTE | 2017-05-30 21:44 | RAD ---
FOUR VIEWS LEFT KNEE: History: Fall. Left knee pain. FINDINGS: AP, lateral, and both oblique views of left knee obtained. There is no evidence of left knee fractures, subluxations, or bony lesions. IMPRESSION: Normal four views left knee. POS: [facility]
== END 2017-05-30 22:00 | disposition home or self-care (01) ==
LOC: NAV ERS 20:27
DX: S80.02XA Contusion of left knee, initial encounter (principal); J45.909 Unspecified asthma, uncomplicated; E78.5 Hyperlipidemia, unspecified; E11.40 Type 2 diabetes mellitus with diabetic neuropathy, unspecified; F17.210 Nicotine dependence, cigarettes, uncomplicated; Z79.4 Long term (current) use of insulin; Z79.899 Other long term (current) drug therapy; W01.0XXA Fall on same level from slipping, tripping and stumbling without subsequent striking against object, initial encounter
CPT/HCPCS: 96372; J1885

== ENCOUNTER 2017-07-26 12:11 | Emergency (ER) | payer MEDICAID ==
[2017-07-26] MEDS ORDERED: Bupivacaine 0.5% 10 ML VIAL ONE (12:33)
[2017-07-26] MEDS ORDERED: Penicillin V Potassium 250 MG TAB ONE (12:37)
== END 2017-07-26 13:03 | disposition home or self-care (01) ==
LOC: NAV ERS 12:11
DX: K02.9 Dental caries, unspecified (principal); I10 Essential (primary) hypertension; J45.909 Unspecified asthma, uncomplicated; E11.40 Type 2 diabetes mellitus with diabetic neuropathy, unspecified; F17.210 Nicotine dependence, cigarettes, uncomplicated; Z79.4 Long term (current) use of insulin; Z79.899 Other long term (current) drug therapy
CPT/HCPCS: 64400; J3490